=== PATIENT | male | born 1965 | race Caucasian/White ===

== ENCOUNTER 2019-01-14 10:50 | Emergency (ER) | payer BC ==
--- NOTE | 2019-01-14 13:08 | ER ---
Nurse's Notes [facility] Name: Antoine Figueroa Age: 54 yrs Sex: Male : 1965 Arrival Date: 01/14/2019 Time: 10:51 Bed 27 Private MD: King Gonzalez T Diagnosis: Acute pharyngitis;Essential (primary) hypertension Presentation: 01/14 11:17 Presenting complaint: Patient states: sore throat, chills, body aches that began today. ss Transition of care: patient was not received from another setting of care. Onset of symptoms was January 14, 2019. Risk Assessment: Do you want to hurt yourself or someone else? Patient reports no desire to harm self or others. Initial Sepsis Screen: Does the patient meet any 2 criteria? No. Patient's initial sepsis screen is negative. Does the patient have a suspected source of infection? No. Patient's initial sepsis screen is negative. Care prior to arrival: None. 11:17 Method Of Arrival: Ambulatory ss 11:17 Acuity: WILMER 2 ss Historical: - Allergies: 11:18 No Known Allergies; ss - Home Meds: 11:18 None [Active]; ss - PMHx: 11:19 Hypertension; ss - Immunization history:: Adult Immunizations up to date. - Social history:: Smoking status: Patient uses tobacco products, smokes one pack cigarettes per day. - Ebola Screening: : Patient denies exposure to infectious person Patient denies travel to an Ebola-affected area in the 21 days before illness onset. Screenin:24 Abuse screen: Denies threats or abuse. Nutritional screening: No deficits noted. tr5 Tuberculosis screening: No symptoms or risk factors identified. Fall Risk None identified. Assessment: 12:24 General: Appears in no apparent distress. Behavior is calm, cooperative. Pain: tr5 Complains of pain in abdomen. Neuro: Level of Consciousness is awake, alert, obeys commands, Oriented to person, place, time, Bull Fiddle Player are equal bilaterally Moves all extremities. Gait is steady. Cardiovascular: Heart tones present Capillary refill < 3 seconds Pulses are all present. Edema is absent. Respiratory: Airway is patent Respiratory effort is even, unlabored, Respiratory pattern is regular, symmetrical, Breath sounds are clear bilaterally. GI: No signs and/or symptoms were reported involving the gastrointestinal system. : No signs and/or symptoms were reported regarding the genitourinary system. EENT: Throat is reddened Reports Sore throat. Derm: No signs and/or symptoms reported regarding the dermatologic system. Musculoskeletal: No signs and/or symptoms reported regarding the musculoskeletal system. Vital Signs: 11:18 BP 144 / 110; Pulse 80; Resp 16; Temp 97.9(O); Pulse Ox 97% on R/A; Weight 90.72 kg; ss Height 5 ft. 10 in. (177.80 cm); Pain 5/10; 13:15 BP 129 / 93; Pulse 72; Resp 16; Pulse Ox 99% on R/A; tr5 11:18 Body Mass Index 28.70 (90.72 kg, 177.80 cm) ED Course: 10:51 Patient arrived in ED. mr 10:52 King Gonzalez MD is Private Physician. mr 11:18 Triage completed. ss 11:18 Arm band placed on right wrist. ss 11:26 [facility] pm1 11:26 Eros Terry MD is Attending Physician. pm1 11:59 Flu and/or RSV swab sent to lab. Strep swab sent to lab. lt1 11:59 Strep Sent. lt1 11:59 Flu Sent. lt1 12:02 Ryan Kwon RN is Primary Nurse. tr5 12:24 Placed in gown. Bed in low position. Call light in reach. tr5 13:35 No provider procedures requiring assistance completed. Patient did not have IV access tr5 during this emergency room visit. Administered Medications: No medications were administered Outcome: 13:07 Discharge ordered by . pm1 13:15 Discharged to home ambulatory. tr5 13:15 Condition: stable 13:15 Discharge instructions given to patient, family, Instructed on discharge instructions, follow up and referral plans. medication usage, Demonstrated understanding of instructions, follow-up care, medications, Prescriptions given X 1. 13:36 Patient left the ED. tr5 Signatures: Adelaide Blanca MargieZohra forbes, ARLENE RN Ellis Miranda, SUSAN XRAY TECH pm1 Natalie De La Cruz lt1 Ryan Kwon RN RN tr5 Corrections: (The following items were deleted from the chart) 11:19 11:17 Acuity: WILMER 4 ss 11:19 11:18 PMHx: None; ss ss
--- NOTE | 2019-01-14 13:08 | EDPHYS ---
Physician Documentation [facility] Name: Antoine Figueroa Age: 54 yrs Sex: Male : 1965 Arrival Date: 01/14/2019 Time: 10:51 Bed 27 Private MD: King Gonzalez T ED Physician Eros Terry HPI: 01/14 11:42 This 54 yrs old Male presents to ER via Ambulatory with complaints of Sore pm1 Throat. 11:42 The patient presents with sore throat. Onset: The symptoms/episode began/occurred pm1 today. Severity of symptoms: in the emergency department the symptoms are unchanged. Modifying factors: The symptoms are alleviated by nothing, the symptoms are aggravated by nothing, Patient's oral intake status: good The patient has had contact with sick and grandson's are present in the ER with complaints of sore throat and cough. Associated signs and symptoms: Pertinent positives: chills, bodyaches, Pertinent negatives chest pain, cough, fever, headache, nausea, rhinorrhea, shortness of breath, vomiting. The patient has not recently seen a physician. Has a history of HTN that he has not addressed with a PCP. Was given a 2 week prescription for HTN medications at a ER but never followed up with a PCP. That was about 2 years ago. Historical: - Allergies: 11:18 No Known Allergies; ss - Home Meds: 11:18 None [Active]; ss - PMHx: 11:19 Hypertension; ss - Immunization history:: Adult Immunizations up to date. - Social history:: Smoking status: Patient uses tobacco products, smokes one pack cigarettes per day. - Ebola Screening: : Patient denies exposure to infectious person Patient denies travel to an Ebola-affected area in the 21 days before illness onset. ROS: 11:42 Constitutional: Negative for fever, chills, and weight loss, Eyes: Negative for injury, pm1 pain, redness, and discharge. 11:42 Neck: Negative for injury, pain, and swelling, Cardiovascular: Negative for chest pain, palpitations, and edema, Respiratory: Negative for shortness of breath, cough, wheezing, and pleuritic chest pain, Abdomen/GI: Negative for abdominal pain, nausea, vomiting, diarrhea, and constipation, Back: Negative for injury and pain, MS/Extremity: Negative for injury and deformity, Skin: Negative for injury, rash, and discoloration, Neuro: Negative for headache, weakness, numbness, tingling, and seizure. 11:42 ENT: Positive for sore throat, Negative for ear pain, rhinorrhea, sinus congestion, sinus pain, difficulty swallowing, difficulty handling secretions, hoarseness. Exam: 11:42 Constitutional: This is a well developed, well nourished patient who is awake, alert, pm1 and in no acute distress. Head/Face: Normocephalic, atraumatic. Eyes: Pupils equal round and reactive to light, extra-ocular motions intact. Lids and lashes normal. Conjunctiva and sclera are non-icteric and not injected. Cornea within normal limits. Periorbital areas with no swelling, redness, or edema. Neck: Trachea midline, no thyromegaly or masses palpated, and no cervical lymphadenopathy. Supple, full range of motion without nuchal rigidity, or vertebral point tenderness. No Meningismus. 11:42 Chest/axilla: Normal chest wall appearance and motion. Nontender with no deformity. No lesions are appreciated. Cardiovascular: Regular rate and rhythm with a normal S1 and S2. No gallops, murmurs, or rubs. Normal PMI, no JVD. No pulse deficits. Respiratory: Lungs have equal breath sounds bilaterally, clear to auscultation and percussion. No rales, rhonchi or wheezes noted. No increased work of breathing, no retractions or nasal flaring. Abdomen/GI: Soft, non-tender, with normal bowel sounds. No distension or tympany. No guarding or rebound. No evidence of tenderness throughout. Back: No spinal tenderness. No costovertebral tenderness. Full range of motion. Skin: Warm, dry with normal turgor. Normal color with no rashes, no lesions, and no evidence of cellulitis. MS/ Extremity: Pulses equal, no cyanosis. Neurovascular intact. Full, normal range of motion. 11:42 ENT: External ear(s): are unremarkable, Ear canal(s): are normal, TM's: are normal, Nose: is normal, Mouth: is normal, Posterior pharynx: Airway: normal, patent, Tonsils: bilaterally enlarged, with erythema, no exudate, no ulcerations, erythema, that is mild, exudate, is not appreciated, peritonsillar mass, is not appreciated, pooling of secretions, is not appreciated. 11:42 Neuro: Orientation: is normal, Motor: is normal, moves all fours. Vital Signs: 11:18 BP 144 / 110; Pulse 80; Resp 16; Temp 97.9(O); Pulse Ox 97% on R/A; Weight 90.72 kg; ss Height 5 ft. 10 in. (177.80 cm); Pain 5/10; 13:15 BP 129 / 93; Pulse 72; Resp 16; Pulse Ox 99% on R/A; tr5 11:18 Body Mass Index 28.70 (90.72 kg, 177.80 cm) ss MDM: 11:26 Patient medically screened. pm1 13:06 Data reviewed: vital signs. Data interpreted: Pulse oximetry: on room air is 97 %. pm1 Interpretation: normal. Counseling: I had a detailed discussion with the patient and/or guardian regarding: the historical points, exam findings, and any diagnostic results supporting the discharge/admit diagnosis, lab results, the need for outpatient follow up, to return to the emergency department if symptoms worsen or persist or if there are any questions or concerns that arise at home. 13:06 ED course: Presenting here with grandsons who tested positive for strep throat, will pm1 cover the patient also. 01/14 11:41 Order name: Flu; Complete Time: 13:01 pm1 01/14 11:41 Order name: Strep; Complete Time: 13:01 pm1 01/14 12:52 Order name: Throat Culture EDMS Administered Medications: No medications were administered Disposition: 16:50 Co-signature as Attending Physician, Eros Terry MD I agree with the assessment and eva plan of care. Disposition: 01/14/19 13:07 Discharged to Home. Impression: Acute pharyngitis, Essential (primary) hypertension. - Condition is Stable. - Discharge Instructions: Hypertension, Pharyngitis, How to Take Your Blood Pressure, [id number], DASH Eating Plan, Managing Your Hypertension. - Prescriptions for Zithromax Z- James 250 mg Oral Tablet - take 1 tablet by ORAL route as directed for 5 days Day 1 - take two (2) tablets one time. Day 2, 3, 4 , 5 take one (1) tablet once daily.; 6 tablet. - Medication Reconciliation Form, Thank You Letter, Antibiotic Education, Prescription Opioid Use form. - Follow up: Emergency Department; When: As needed; Reason: Worsening of condition. Follow up: Private Physician; When: 2 - 3 days; Reason: Recheck today's complaints, Continuance of care, Re-evaluation by your physician. - Problem is new. - Symptoms have improved. Signatures: Dispatcher [employer] EDMS Eros Terry, Zohra Franklin MD, cha RN RN ss Ellis Miranda, SHARE HOLDER SHARE HOLDER pm1 Ryan Kwon RN RN tr5 Corrections: (The following items were deleted from the chart) 11:19 11:18 PMHx: None; [facility] 13:36 13:07 01/14/2019 13:07 Discharged to Home. Impression: Acute pharyngitis; Essential tr5 (primary) hypertension. Condition is Stable. Forms are Medication Reconciliation Form, Thank You Letter, Antibiotic Education, Prescription Opioid Use. Follow up: Emergency Department; When: As needed; Reason: Worsening of condition. Follow up: Private Physician; When: 2 - 3 days; Reason: Recheck today's complaints, Continuance of care, Re-evaluation by your physician. Problem is new. Symptoms have improved. pm1
[2019-01-14 13:52] VITALS: TEMP 97.9
[2019-01-14 13:53] VITALS: BP 129/93; O2SAT 99
== END 2019-01-14 13:36 | disposition home or self-care (01) ==
LOC: ER 10:50
DX: J02.9 Acute pharyngitis, unspecified (principal); I10 Essential (primary) hypertension; F17.210 Nicotine dependence, cigarettes, uncomplicated
CPT/HCPCS: 87070; 87081; 87804; 99283

== ENCOUNTER 2019-03-02 18:07 | Emergency (ER) | payer BC ==
[2019-03-02] MEDS ORDERED: NITROGLYCERIN 0.4 MG/TAB SL ONE (19:19)
[2019-03-02 19:24] LABS: Absolute Lymphocytes (CBC) 2.6 K/uL (0.7-4.9); Basophils % 0.8 % (0-1.3); Hematocrit 45.1 % (39.6-49.0); Lymphocytes % 29.3 % (15.3-44.8); MPV 7.4 fL (7.6-11.3); RBC Red Blood Cell Count 4.79 M/uL (4.33-5.43)
[2019-03-02 19:28] LABS: Protime INR 0.97
[2019-03-02 19:42] LABS: ALT/SGPT 33 U/L (12-78); AST/SGOT 18 U/L (15-37); Albumin 3.7 g/dL (3.4-5.0); Alkaline Phosphatase 34 U/L (45-117); BUN Blood Urea Nitrogen 14 mg/dL (7-18); Bicarbonate 28 mmol/L (21-32); Bilirubin Direct < 0.1 mg/dL (0-0.2); Bilirubin Total 0.3 mg/dL (0.2-1.0); Glucose Level 100 mg/dL (74-106); Magnesium 2.2 mg/dL (1.8-2.4); NT PRO-BNP 21 pg/mL (<125); Potassium 3.9 mmol/L (3.5-5.1); Protein, Total 6.9 g/dL (6.4-8.2); Sodium Level 140 mmol/L (136-145); Troponin (Emerg Dept Use Only) < 0.02 ng/mL (0.0-0.045)
--- NOTE | 2019-03-02 20:11 | RAD REPORT ---
EXAM DESCRIPTION: Flores Single View03/02/2019 7:29 pm CLINICAL HISTORY: sob COMPARISON: none FINDINGS: The lungs appear clear of acute infiltrate. The heart is normal size IMPRESSION: No acute abnormalities displayed
--- NOTE | 2019-03-02 21:46 | ER ---
Nurse's Notes [facility] Name: Antoine Figueroa Age: 54 yrs Sex: Male : 1965 Arrival Date: 03/02/2019 Time: 18:10 Bed 24 Private MD: Diagnosis: Essential (primary) hypertension;Chest pain, unspecified Presentation: 03/02 18:17 Presenting complaint: Patient states: "I've been feeling discomfort in the chest, aj1 headache, face is flushed. My said its high blood pressure, but its been like this all day long." Denies palpitations, shortness of breath. Transition of care: patient was not received from another setting of care. Onset of symptoms was March 02, 2019. Risk Assessment: Do you want to hurt yourself or someone else? Patient reports no desire to harm self or others. Initial Sepsis Screen: Does the patient meet any 2 criteria? No. Patient's initial sepsis screen is negative. Does the patient have a suspected source of infection? No. Patient's initial sepsis screen is negative. Care prior to arrival: None. 18:17 Method Of Arrival: Ambulatory aj 18:17 Acuity: WILMER 3 aj1 Triage Assessment: 18:19 General: Appears in no apparent distress. comfortable, Behavior is calm, cooperative, aj1 appropriate for age. Pain: Complains of pain in chest Pain does not radiate. Pain currently is 3 out of 10 on a pain scale. Quality of pain is described as tightness. Neuro: Level of Consciousness is awake, alert, obeys commands, Oriented to person, place, time, situation. Cardiovascular: Reports chest pain, Denies palpitations, shortness of breath, Patient's skin is warm and dry. Respiratory: Airway is patent Respiratory effort is even, unlabored, Respiratory pattern is regular, symmetrical. Historical: - Allergies: 18:19 No Known Allergies; aj1 - Home Meds: 18:19 None [Active]; aj1 - PMHx: 18:19 Hypertension; aj1 - PSHx: 18:19 None; aj1 - Immunization history:: Flu vaccine is not up to date. - Social history:: Smoking status: Patient uses tobacco products, smokes one pack cigarettes per day. - Ebola Screening: : Patient denies travel to an Ebola-affected area in the 21 days before illness onset. Screenin:17 Abuse screen: Denies threats or abuse. Denies injuries from another. Nutritional rr5 screening: No deficits noted. Tuberculosis screening: No symptoms or risk factors identified. Fall Risk IV access (20 points). Total Ferguson Fall Scale indicates No Risk (0-24 pts). Assessment: 19:10 General: Appears in no apparent distress. uncomfortable, Behavior is calm, cooperative, rr5 appropriate for age. 19:10 Pain: Complains of pain in anterior aspect of left upper chest Pain does not radiate. rr5 Pain currently is 2 out of 10 on a pain scale. Quality of pain is described as discomfort Pain began 1 day ago. Is intermittent. Neuro: Level of Consciousness is awake, alert, obeys commands, Oriented to person, place, time, situation, Appropriate for age. Cardiovascular: Reports chest pain, i feel like my blood pressure is high Capillary refill < 3 seconds Patient's skin is warm and dry. Respiratory: Reports cough that is dry, Airway is patent Respiratory effort is even, unlabored, Respiratory pattern is regular, symmetrical. GI: No signs and/or symptoms were reported involving the gastrointestinal system. : No signs and/or symptoms were reported regarding the genitourinary system. EENT: No signs and/or symptoms were reported regarding the EENT system. Derm: Skin is intact, is healthy with good turgor, Skin temperature is warm. Musculoskeletal: Circulation, motion, and sensation intact. Capillary refill < 3 seconds. 20:20 Reassessment: Patient appears in no apparent distress at this time. Patient is alert, rr5 oriented x 3, equal unlabored respirations, skin warm/dry/pink. awaiting for review. Patient states feeling better. Patient states symptoms have improved. 21:25 Reassessment: Patient appears in no apparent distress at this time. No changes from rr5 previously documented assessment. awaiting for result. 21:55 Reassessment: Patient appears in no apparent distress at this time. Patient is alert, rr5 oriented x 3, equal unlabored respirations, skin warm/dry/pink. discharge instruction given and explained without complaints made. Patient denies pain at this time. Patient states feeling better. Patient states symptoms have improved. Vital Signs: 18:19 BP 139 / 100; Pulse 81; Resp 18; Temp 98.6; Pulse Ox 100% on R/A; Weight 86.18 kg (R); aj1 Height 5 ft. 10 in. (177.80 cm) (R); Pain 3/10; 19:15 BP 151 / 101; Pulse 77; Resp 19; Temp 98.5; Pulse Ox 97% ; Pain 2/10; rr5 20:18 BP 129 / 90; Pulse 70; Resp 18; Pulse Ox 97% ; Pain 0/10; rr5 21:40 BP 131 / 85; Pulse 79; Resp 17; Temp 98.4; Pulse Ox 99% ; Pain 0/10; rr5 18:19 Body Mass Index 27.26 (86.18 kg, 177.80 cm) aj1 ED Course: 18:10 Patient arrived in ED. mr 18:19 Triage completed. aj1 18:19 Arm band placed on Patient placed in waiting room, Patient notified of wait time. EKG aj1 completed in triage. Results shown to MD. 19:07 Charan Carrillo PA is PHCP. jr8 19:07 Eros Terry MD is Attending Physician. jr8 19:07 Luis Jaramillo, RN is Primary Nurse. rr5 19:10 EKG done, by ED staff, reviewed by Charan ALEJANDRE. rr5 19:15 No provider procedures requiring assistance completed. Inserted saline lock: 20 gauge rr5 in right wrist, using aseptic technique. Blood collected. 19:15 Patient maintains SpO2 saturation greater than 95% on room air. rr5 19:30 XRAY Chest (1 view) In Process Unspecified. EDMS 21:10 Repeat lab(s) drawn. by az, sent to lab. rr5 21:45 Jv Ocampo MD is Referral Physician. jr8 Administered Medications: 19:20 Drug: Nitroglycerin 0.4 mg Route: Sublingual; rr5 20:20 Follow up: Response: No adverse reaction; Marked relief of symptoms rr5 Outcome: 21:46 Discharge ordered by . jr8 21:58 Patient left the ED. rr5 Signatures: Dispatcher [employer] EDMS Nicki Crain RN RN aj1 Adelaide Blanca mr Charan Carrillo PA PA jr8 Luis Jaramillo, RN RN rr5
--- NOTE | 2019-03-02 21:47 | EDPHYS ---
Physician Documentation [facility] Name: Antoine Figueroa Age: 54 yrs Sex: Male : 1965 Arrival Date: 03/02/2019 Time: 18:10 Bed 24 Private MD: ED Physician Eros Terry HPI: 03/02 21:09 This 54 yrs old Male presents to ER via Ambulatory with complaints of Chest jr8 Tightness, High Blood Pressure. 21:09 The patient or guardian reports chest pain that is located primarily in the anterior jr8 chest wall, left. Onset: acutely, today. The pain does not radiate. Associated signs and symptoms: The patient has no apparent associated signs or symptoms. The chest pain is described as a pressure. Duration: The patient or guardian reports a single episode, that is still ongoing. Modifying factors: The symptoms are alleviated by nothing. the symptoms are aggravated by nothing. Severity of pain: At its worst the pain was mild in the emergency department the pain is unchanged. The patient has not experienced similar symptoms in the past. The patient has not recently seen a physician. Started around 12 pm today. [place] his blood pressure was elevated. Started to have chest tightness. Currently not on any medications for BP . Historical: - Allergies: 18:19 No Known Allergies; aj1 - Home Meds: 18:19 None [Active]; aj1 - PMHx: 18:19 Hypertension; aj1 - PSHx: 18:19 None; aj1 - Immunization history:: Flu vaccine is not up to date. - Social history:: Smoking status: Patient uses tobacco products, smokes one pack cigarettes per day. - Ebola Screening: : Patient denies travel to an Ebola-affected area in the 21 days before illness onset. ROS: 21:10 Eyes: Negative for injury, pain, redness, and discharge, ENT: Negative for injury, jr8 pain, and discharge, Neck: Negative for injury, pain, and swelling, Respiratory: Negative for shortness of breath, cough, wheezing, and pleuritic chest pain, Abdomen/GI: Negative for abdominal pain, nausea, vomiting, diarrhea, and constipation, Back: Negative for injury and pain, MS/Extremity: Negative for injury and deformity, Skin: Negative for injury, rash, and discoloration, Neuro: Negative for headache, weakness, numbness, tingling, and seizure. 21:10 Cardiovascular: Positive for chest pain, Negative for edema, orthopnea, palpitations, paroxysmal nocturnal dyspnea. Exam: 21:10 Eyes: Pupils equal round and reactive to light, extra-ocular motions intact. Lids and jr8 lashes normal. Conjunctiva and sclera are non-icteric and not injected. Cornea within normal limits. Periorbital areas with no swelling, redness, or edema. ENT: Nares patent. No nasal discharge, no septal abnormalities noted. Tympanic membranes are normal and external auditory canals are clear. Oropharynx with no redness, swelling, or masses, exudates, or evidence of obstruction, uvula midline. Mucous membranes moist. Neck: Trachea midline, no thyromegaly or masses palpated, and no cervical lymphadenopathy. Supple, full range of motion without nuchal rigidity, or vertebral point tenderness. No Meningismus. Chest/axilla: Normal chest wall appearance and motion. Nontender with no deformity. No lesions are appreciated. Cardiovascular: Regular rate and rhythm with a normal S1 and S2. No gallops, murmurs, or rubs. Normal PMI, no JVD. No pulse deficits. Respiratory: Lungs have equal breath sounds bilaterally, clear to auscultation and percussion. No rales, rhonchi or wheezes noted. No increased work of breathing, no retractions or nasal flaring. Abdomen/GI: Soft, non-tender, with normal bowel sounds. No distension or tympany. No guarding or rebound. No evidence of tenderness throughout. Back: No spinal tenderness. No costovertebral tenderness. Full range of motion. Skin: Warm, dry with normal turgor. Normal color with no rashes, no lesions, and no evidence of cellulitis. MS/ Extremity: Pulses equal, no cyanosis. Neurovascular intact. Full, normal range of motion. Neuro: Awake and alert, GCS 15, oriented to person, place, time, and situation. Cranial nerves II-XII grossly intact. Motor strength 5/5 in all extremities. Sensory grossly intact. Cerebellar exam normal. Normal gait. Vital Signs: 18:19 BP 139 / 100; Pulse 81; Resp 18; Temp 98.6; Pulse Ox 100% on R/A; Weight 86.18 kg (R); aj1 Height 5 ft. 10 in. (177.80 cm) (R); Pain 3/10; 19:15 BP 151 / 101; Pulse 77; Resp 19; Temp 98.5; Pulse Ox 97% ; Pain 2/10; rr5 20:18 BP 129 / 90; Pulse 70; Resp 18; Pulse Ox 97% ; Pain 0/10; rr5 21:40 BP 131 / 85; Pulse 79; Resp 17; Temp 98.4; Pulse Ox 99% ; Pain 0/10; rr5 18:19 Body Mass Index 27.26 (86.18 kg, 177.80 cm) aj1 MDM: 19:08 Patient medically screened. jr8 21:10 The patient was not given aspirin in the Emergency Department. Patient reports taking jr8 aspirin within the past 24 hours. Data reviewed: vital signs, nurses notes, lab test result(s), EKG, radiologic studies, plain films. Data interpreted: Pulse oximetry: on room air is 97 %. Interpretation: normal. Counseling: I had a detailed discussion with the patient and/or guardian regarding: the historical points, exam findings, and any diagnostic results supporting the discharge/admit diagnosis, lab results, radiology results, the need for outpatient follow up, a storage battery inspector and tester, a family practitioner, to return to the emergency department if symptoms worsen or persist or if there are any questions or concerns that arise at home. ED course: Patient currently free of all symptoms. BP well controlled at this point. If second troponin is negative and patient still doing well, will send home to f/u with FM and Cardiology. Will start patient on BP medications. Patient good with this plan . 03/02 19: Order name: Basic Metabolic Panel; Complete Time: 20:03/02 19: Order name: CBC with Diff; Complete Time: 20:03/02 19:07 Order name: LFT's; Complete Time: 20:02 03/02 19:07 Order name: Magnesium; Complete Time: 20:02 03/02 19:07 Order name: NT PRO-BNP; Complete Time: 20:02 03/02 19:07 Order name: PT-INR; Complete Time: 20:02 03/02 19:07 Order name: Troponin (emerg Dept Use Only); Complete Time: 20:03/02 19:07 Order name: XRAY Chest (1 view); Complete Time: 20:56 [facility] 03/02 19:07 Order name: Cardiac monitoring; Complete Time: 19:56 [facility] 03/02 19:07 Order name: EKG - Nurse/Tech; Complete Time: 20:16 8 03/02 19:07 Order name: IV Saline Lock; Complete Time: 20:16 8 03/02 21:08 Order name: Troponin (emerg Dept Use Only); Complete Time: 21:45 [facility] 03/02 19:07 Order name: Labs collected and sent; Complete Time: 20:16 8 03/02 19:07 Order name: O2 Per Protocol; Complete Time: 20:16 8 03/02 19:07 Order name: O2 Sat Monitoring; Complete Time: 20:16 Administered Medications: 19:20 Drug: Nitroglycerin 0.4 mg Route: Sublingual; rr5 20:20 Follow up: Response: No adverse reaction; Marked relief of symptoms rr5 Disposition: 03/03 07:54 Co-signature as Attending Physician, Eros Terry MD I agree with the assessment and eva plan of care. Disposition: 03/02/19 21:46 Discharged to Home. Impression: Essential (primary) hypertension, Chest pain, unspecified. - Condition is Stable. - Discharge Instructions: Nonspecific Chest Pain, Hypertension. - Prescriptions for Lisinopril 20 mg Oral Tablet - take 1 tablet by ORAL route once daily; 20 tablet. - Medication Reconciliation Form, Thank You Letter, Antibiotic Education, Prescription Opioid Use form. - Follow up: Jv Ocampo MD; When: 2 - 3 days; Reason: Recheck today's complaints, Continuance of care, Re-evaluation by your physician. - Problem is new. - Symptoms have improved. Signatures: Dispatcher [employer] EDMS Nicki Crain RN RN aj1 Eros Terry MD MD cha Roszak, Josh, PA PA jr8 Luis Jaramillo RN RN rr5 Corrections: (The following items were deleted from the chart) 03/02 21:58 21:46 03/02/2019 21:46 Discharged to Home. Impression: Essential (primary) rr5 hypertension; Chest pain, unspecified. Condition is Stable. Forms are Medication Reconciliation Form, Thank You Letter, Antibiotic Education, Prescription Opioid Use. Follow up: Jv Ocampo; When: 2 - 3 days; Reason: Recheck today's complaints, Continuance of care, Re-evaluation by your physician. Problem is new. Symptoms have improved. jr8
[2019-03-02 22:17] VITALS: BP 131/85; TEMP 98.4; O2SAT 99
--- NOTE | 2019-03-04 20:51 | EKG ---
Test Date: 2019-03-02 Test Time: 18:15:50 Psychology Physician: ASAD MEASUREMENT RESULTS: Intervals: Rate: 80 MO: 134 QRSD: 94 QT: 352 QTc: 405 [place]: P: 64 MO: 134 QRS: 74 T: 59 INTERPRETIVE STATEMENTS: Normal sinus rhythm Normal ECG No previous ECG available for comparison Electronically Signed On 03-04-19 20:47:05 [employer] by Jv Ocampo
== END 2019-03-02 21:58 | disposition home or self-care (01) ==
LOC: ER 18:07
DX: R07.9 Chest pain, unspecified (principal); I10 Essential (primary) hypertension; F17.210 Nicotine dependence, cigarettes, uncomplicated
CPT/HCPCS: 36415; 71045; 80048; 80076; 83735; 83880; 84484; 85025; 85610; 93005; 99284

== ENCOUNTER 2019-09-07 15:30 | Emergency (ER) | payer BC ==
[2019-09-07] MEDS ORDERED: cloNIDine HCL 0.1 MG TAB ONE (17:51)
--- NOTE | 2019-09-07 17:56 | RAD REPORT ---
EXAM DESCRIPTION: CT - Head Brain Wo Cont - 09/07/2019 5:49 pm CLINICAL HISTORY: hypertension;Headache Headache, hypertension, drowsiness COMPARISON: No comparisons TECHNIQUE: All CT scans are performed using dose optimization technique as appropriate and may inclu de automated exposure control or mA/KV adjustment according to patient size. FINDINGS: No intracranial hemorrhage, hydrocephalus or extra-axial fluid collection.No areas of brai n edema or evidence of midline shift. The paranasal sinuses and mastoids are essentially clear. The calvarium is intact. IMPRESSION: No acute intracranial abnormality.
--- NOTE | 2019-09-07 18:18 | EDPHYS ---
Physician Documentation [facility] Name: Antoine Figueroa Age: 54 yrs Sex: Male : 1965 Arrival Date: 09/07/2019 Time: 15:32 Bed 17 Private MD: King Gonzalez T ED Physician Alex Villarreal HPI: 09/06 17:43 This 54 yrs old Male presents to ER via Ambulatory with complaints of High rn Blood Pressure, Headache. 17:43 The patient has elevated blood pressure and discovered this at home. Onset: The rn symptoms/episode began/occurred at an unknown time. Modifying factors:. Severity of symptoms: At its worst the blood pressure was moderate, in the emergency department the blood pressure is unchanged. The patient has experienced similar episodes in the past. Reports has been on BP meds before, never followed up and actually stopped taking his meds, was on lisinopril, now returns for 3-4 days of posterior headache, and high blood pressure readings at home. No focal neurological complaints, no head trauma, no vomiting. No chest pain/sob. . Historical: - Allergies: 15:53 No Known Allergies; ca1 - Home Meds: 15:53 Lisinopril Oral [Active]; ca1 - PMHx: 15:53 Hypertension; ca1 - PSHx: 15:53 None; ca1 - Immunization history:: Adult Immunizations not up to date. - Social history:: Smoking status: Patient reports the use of cigarette tobacco products, smokes two packs cigarettes per day. - Family history:: not pertinent. - Hospitalizations: : No recent hospitalization is reported. ROS: 17:43 Constitutional: Negative for fever, chills, and weight loss, Eyes: Negative for injury, rn pain, redness, and discharge, Neck: Negative for injury, pain, and swelling, Cardiovascular: Negative for chest pain, palpitations, and edema, Respiratory: Negative for shortness of breath, cough, wheezing, and pleuritic chest pain, Abdomen/GI: Negative for abdominal pain, nausea, vomiting, diarrhea, and constipation, MS/Extremity: Negative for injury and deformity, Skin: Negative for injury, rash, and discoloration, Neuro: Negative for weakness, numbness, tingling, and seizure. Exam: 17:43 Constitutional: This is a well developed, well nourished patient who is awake, alert, rn and in no acute distress. Head/Face: Normocephalic, atraumatic. Eyes: Pupils equal round and reactive to light, extra-ocular motions intact. Lids and lashes normal. Conjunctiva and sclera are non-icteric and not injected. Cornea within normal limits. Periorbital areas with no swelling, redness, or edema. Neck: Trachea midline, no thyromegaly or masses palpated, and no cervical lymphadenopathy. Supple, full range of motion without nuchal rigidity, or vertebral point tenderness. No Meningismus. Cardiovascular: Regular rate and rhythm. No pulse deficits. Respiratory: No increased work of breathing, no retractions or nasal flaring. Abdomen/GI: Soft, non-tender MS/ Extremity: Pulses equal, no cyanosis. Neurovascular intact. Full, normal range of motion. Equal circumference. Neuro: Awake and alert, GCS 15, oriented to person, place, time, and situation. Cranial nerves II-XII grossly intact. Motor strength 5/5 in all extremities. Sensory grossly intact. Cerebellar exam normal. 18:15 ECG was reviewed by the Attending Physician. rn Vital Signs: 15:46 BP 151 / 104; Pulse 95; Resp 18 S; Temp 97.8(TE); Pulse Ox 96% on R/A; Weight 86.18 kg ca1 (R); Height 5 ft. 10 in. (177.80 cm) (R); 18:15 BP 144 / 94; rn 18:16 BP 144 / 94; Pulse 75; Resp 20; Pulse Ox 98% ; bp 15:46 Body Mass Index 27.26 (86.18 kg, 177.80 cm) ca1 MDM: 17:19 Patient medically screened. rn 18:15 Differential diagnosis: hypertensive crisis, Malignant HTN. Data reviewed: vital signs, rn nurses notes, EKG, radiologic studies, CT scan, and as a result, I will discharge patient. Counseling: I had a detailed discussion with the patient and/or guardian regarding: the historical points, exam findings, and any diagnostic results supporting the discharge/admit diagnosis, radiology results, the need for outpatient follow up, to return to the emergency department if symptoms worsen or persist or if there are any questions or concerns that arise at home. Counseling: I had a detailed discussion with the patient and/or guardian regarding: the presence of at least one elevated blood pressure reading (>120/80) during this emergency department visit. Response to treatment: the patient's symptoms have markedly improved after treatment, and as a result, I will discharge patient. Special discussion: I have referred the patient to see his PCP for further evaluation of high blood pressure. I discussed with the patient/guardian in detail that at this point there is no indication for admission to the hospital. It is understood, however, that if the symptoms persist or worsen the patient needs to return immediately for re-evaluation. Based on the history and exam findings, there is no indication for further emergent testing or inpatient evaluation. I discussed with the patient/guardian the need to see the primary care provider for further evaluation of the symptoms. ED course: Pt improved symptoms with lowering of BP, now 144/94, neg ct head and normal ecg, will dc home with script for lisinopril, had long discussion regarding BP management, recording, and importance of PCP f/u.. 09/06 17:26 Order name: CT Head Brain wo Cont; Complete Time: 18:04 rn 09/06 17:26 Order name: EKG; Complete Time: 17: rn 09/06 17:26 Order name: EKG - Nurse/Tech; Complete Time: 18:16 rn EC:15 Rate is 75 beats/min. Rhythm is regular. QRS [place] is Normal. [place] interval is normal. QRS rn interval is normal. QT interval is normal. No Q waves. T waves are Normal. No ST changes noted. Clinical impression: Normal ECG. Interpreted by me. Reviewed by me. Administered Medications: 17:40 Drug: cloNIDine 0.1 mg Route: PO; bp 18:16 Follow up: Response: No adverse reaction bp Disposition: 09/07/19 18:17 Discharged to Home. Impression: Hypertension, unspecified. - Condition is Stable. - Discharge Instructions: Hypertension. - Prescriptions for Lisinopril 20 mg Oral Tablet - take 1 tablet by ORAL route once daily; 60 tablet. - Medication Reconciliation Form, Thank You Letter, Antibiotic Education, Prescription Opioid Use form. - Follow up: Private Physician; When: As needed; Reason: Recheck today's complaints, Re-evaluation by your physician. - Problem is an ongoing problem. - Symptoms have improved. Signatures: Dispatcher [employer] EDMS Alex Villarreal MD MD rn Peltier, Brian, RN RN bp Acob, Asia RN RN ca1 Corrections: (The following items were deleted from the chart) 18:30 18:17 09/07/2019 18:17 Discharged to Home. Impression: Hypertension, unspecified. bp Condition is Stable. Forms are Medication Reconciliation Form, Thank You Letter, Antibiotic Education, Prescription Opioid Use. Follow up: Private Physician; When: As needed; Reason: Recheck today's complaints, Re-evaluation by your physician. Problem is an ongoing problem. Symptoms have improved. rn
--- NOTE | 2019-09-07 18:18 | ER ---
Nurse's Notes [facility] Name: Antoine Figueroa Age: 54 yrs Sex: Male : 1965 Arrival Date: 09/07/2019 Time: 15:32 Bed 17 Private MD: King Gonzalez T Diagnosis: Hypertension, unspecified Presentation: 09/06 15:46 Chief complaint: Patient states: I checked my BP at home and it was 174/103. I was ca1 feeling flushed and some headaches that is why I checked. Headaches x 3-4 days. Denies dizziness, N/V. I have BP medications, but I never take them, but I went ahead and took one today. I think it is Lisinopril. Coronavirus screen: Proceed with normal triage. Patient denies a cough. Patient denies shortness of breath or difficulty breathing. Patient denies measured and/or subjective temperature greater than 100.4F prior to today's visit. Patient denies travel on a cruise ship or to a country the [facility] currently lists as an affected area. Patient denies contact with known and/or suspected case of COVID-19. Ebola Screen: Patient negative for fever greater than or equal to 101.5 degrees Fahrenheit, and additional compatible Ebola Virus Disease symptoms Patient denies exposure to infectious person. Patient denies travel to an Ebola-affected area in the 21 days before illness onset. No symptoms or risks identified at this time. Initial Sepsis Screen: Does the patient meet any 2 criteria? No. Patient's initial sepsis screen is negative. Does the patient have a suspected source of infection? No. Patient's initial sepsis screen is negative. Risk Assessment: Do you want to hurt yourself or someone else? Patient reports no desire to harm self or others. Onset of symptoms was September 07, 2019. 15:46 Method Of Arrival: Ambulatory ca1 15:46 Acuity: WILMER 3 ca1 Triage Assessment: 17:16 Headache History: The patient has had previous headaches and this one is similar to bp previous episodes. General: Appears in no apparent distress. uncomfortable, Behavior is calm, cooperative, appropriate for age. Pain: Complains of pain in head. Pain: Pain currently is 5 out of 10 on a pain scale. Pain began 2-3 days ago. Also complains of no other associated symptoms. EENT: No deficits noted. Neuro: Reports headache. Cardiovascular: Rhythm is sinus rhythm. Respiratory: No deficits noted. GI: No signs and/or symptoms were reported involving the gastrointestinal system. : No signs and/or symptoms were reported regarding the genitourinary system. Derm: No deficits noted. Musculoskeletal: No deficits noted. Historical: - Allergies: 15:53 No Known Allergies; ca1 - Home Meds: 15:53 Lisinopril Oral [Active]; ca1 - PMHx: 15:53 Hypertension; ca1 - PSHx: 15:53 None; ca1 - Immunization history:: Adult Immunizations not up to date. - Social history:: Smoking status: Patient reports the use of cigarette tobacco products, smokes two packs cigarettes per day. - Family history:: not pertinent. - Hospitalizations: : No recent hospitalization is reported. Screenin:17 Abuse screen: Denies threats or abuse. Denies injuries from another. Nutritional bp screening: No deficits noted. Tuberculosis screening: No symptoms or risk factors identified. Fall Risk None identified. Assessment: 17:17 General: SEE TRIAGE NOTE. Pain: Complains of pain in head. bp 18:16 Reassessment: S/S RESOLVED. MD AT B/S FOR RE-EVAL. bp 18:29 Reassessment: PT D/C HOME AMBULATORY WITH FAMILY, DX WITH ESSENTIAL HTN. bp Vital Signs: 15:46 BP 151 / 104; Pulse 95; Resp 18 S; Temp 97.8(TE); Pulse Ox 96% on R/A; Weight 86.18 kg ca1 (R); Height 5 ft. 10 in. (177.80 cm) (R); 18:15 BP 144 / 94; rn 18:16 BP 144 / 94; Pulse 75; Resp 20; Pulse Ox 98% ; bp 15:46 Body Mass Index 27.26 (86.18 kg, 177.80 cm) ca1 ED Course: 15:32 Patient arrived in ED. ag5 15:32 King Gonzalez MD is Private Physician. ag5 15:50 Triage completed. ca1 15:53 Arm band placed on right wrist. ca1 17:12 Santiago Barbour, ARLENE is Primary Nurse. bp 17:17 Patient has correct armband on for positive identification. Bed in low position. Call bp light in reach. Side rails up X2. 17:19 Alex Villarreal MD is Attending Physician. rn 17:44 CT Head Brain wo Cont Sent. bp 17:49 CT Head Brain wo Cont In Process Unspecified. EDMS 18:29 No provider procedures requiring assistance completed. Patient did not have IV access bp during this emergency room visit. Administered Medications: 17:40 Drug: cloNIDine 0.1 mg Route: PO; bp 18:16 Follow up: Response: No adverse reaction bp Outcome: 18:17 Discharge ordered by MD. rn 18:29 Discharged to home ambulatory, with family. bp 18:29 Condition: stable 18:29 Discharge instructions given to patient, Instructed on discharge instructions, follow up and referral plans. medication usage, Demonstrated understanding of instructions, follow-up care, medications, Prescriptions given X 1. 18:30 Patient left the ED. bp Signatures: Dispatcher [employer] EDMS Alex Villarreal MD MD rn Peltier, Brian, RN RN Asia Mora RN RN [facility] Sam, [facility]
[2019-09-07 18:35] VITALS: TEMP 97.8
[2019-09-07 18:36] VITALS: BP 144/94
[2019-09-07 18:41] VITALS: O2SAT 98
--- NOTE | 2019-09-08 10:19 | EKG ---
Test Date: 2019-09-07 Test Time: 18:04:53 Inventory Taker: CHRISS MEASUREMENT RESULTS: Intervals: Rate: 75 ND: 134 QRSD: 90 QT: 364 QTc: 406 [place]: P: 45 ND: 134 QRS: 53 T: 34 INTERPRETIVE STATEMENTS: Normal sinus rhythm Normal ECG Compared to ECG 03/02/2019 18:15:50 No significant changes Electronically Signed On 09-08-19 10:17:51 CDT by Jv Ocampo
== END 2019-09-07 18:30 | disposition home or self-care (01) ==
LOC: ER 15:30
DX: I10 Essential (primary) hypertension (principal); F17.210 Nicotine dependence, cigarettes, uncomplicated
CPT/HCPCS: 70450; 93005; 99284

== ENCOUNTER 2022-03-20 11:04 | Emergency (ER) | payer BC ==
--- NOTE | 2022-03-20 11:27 | ER ---
Nurse's Notes [facility] Name: Antoine Figueroa Age: 57 yrs Sex: Male : 1965 Arrival Date: 03/20/2022 Time: 11:05 Bed IW2 Private MD: Diagnosis: Fungal infection of feet, bilateral Presentation: 03/20 11:13 Chief complaint: Painful burning rash on bottom of both feet x 2 weeks. Coronavirus hb screen: At this time, the client does not indicate any symptoms associated with coronavirus-19. Ebola Screen: No symptoms or risks identified at this time. Risk Assessment: Do you want to hurt yourself or someone else? Patient reports no desire to harm self or others. Onset of symptoms was February 2023. 11:13 Method Of Arrival: Ambulatory hb 11:13 Acuity: WILMER 4 hb Historical: - Allergies: 11:14 No Known Allergies; hb - PMHx: 11:14 Hypertension; hb - Family history:: not pertinent. - Hospitalizations: : No recent hospitalization is reported. Vital Signs: 11:13 BP 162 / 105; Pulse 107; Resp 16; Temp 97.4; Pulse Ox 100% on R/A; Weight 95.25 kg; hb Height 5 ft. 10 in. (177.80 cm); Pain 10/10; 11:13 Body Mass Index 30.13 (95.25 kg, 177.80 cm) hb ED Course: 11:05 Patient arrived in ED. as 11:09 Alex Villarreal MD is Attending Physician. rn 11:14 Triage completed. hb 11:14 Arm band placed on. hb Administered Medications: No medications were administered Outcome: 11:27 Discharge ordered by . rn 11:31 Patient left the ED. hb Signatures: Martha Mcelroy Roman, MD MD rn Baxter, Heather, RN RN hb
--- NOTE | 2022-03-20 11:28 | EDPHYS ---
Physician Documentation [facility] Name: Antoine Figueroa Age: 57 yrs Sex: Male : 1965 Arrival Date: 03/20/2022 Time: 11:05 Bed IW2 Private MD: ED Physician Alex Villarreal HPI: 03/20 11:24 This 57 yrs old Male presents to ER via Ambulatory with complaints of Foot Problem. rn 11:24 The patient presents with pain, a rash. The complaints affect the left foot, right rn foot. Onset: The symptoms/episode began/occurred 2 week(s) ago. Modifying factors: The symptoms are alleviated by nothing, the symptoms are aggravated by soaking feet, wearing boots. Associated signs and symptoms: Pertinent negatives: fever, swelling, warmth. Severity of symptoms: At their worst the symptoms were moderate, in the emergency department the symptoms are unchanged. The patient has experienced similar episodes in the past. The patient has not recently seen a physician. Historical: - Allergies: 11:14 No Known Allergies; hb - PMHx: 11:14 Hypertension; hb - Family history:: not pertinent. - Hospitalizations: : No recent hospitalization is reported. ROS: 11:24 Constitutional: Negative for fever, chills, and weight loss, MS/Extremity: Negative for rn injury and deformity, Skin: + dry cracked feet, no redness or swelling Exam: 11:24 Constitutional: This is a well developed, well nourished patient who is awake, alert, rn and in no acute distress. Skin: + dry cracked feet with crusting, no exudate, no fluctuance, no streaking Vital Signs: 11:13 BP 162 / 105; Pulse 107; Resp 16; Temp 97.4; Pulse Ox 100% on R/A; Weight 95.25 kg; hb Height 5 ft. 10 in. (177.80 cm); Pain 10/10; 11:13 Body Mass Index 30.13 (95.25 kg, 177.80 cm) hb MDM: 11:09 Patient medically screened. rn 11:24 Differential diagnosis: cellulitis, fungal infection, athletes foot. Data reviewed: rn vital signs, nurses notes, and as a result, I will discharge patient. Counseling: I had a detailed discussion with the patient and/or guardian regarding: the historical points, exam findings, and any diagnostic results supporting the discharge/admit diagnosis, the need for outpatient follow up, to return to the emergency department if symptoms worsen or persist or if there are any questions or concerns that arise at home. Special discussion: I discussed with the patient/guardian in detail that at this point there is no indication for admission to the hospital. It is understood, however, that if the symptoms persist or worsen the patient needs to return immediately for re-evaluation. 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
[2022-03-20 11:46] VITALS: BP 162/105; TEMP 97.4; O2SAT 100
== END 2022-03-20 11:31 | disposition home or self-care (01) ==
LOC: ER 11:04
DX: B35.3 Tinea pedis (principal); I10 Essential (primary) hypertension
CPT/HCPCS: 99281

== ENCOUNTER 2022-11-24 08:45 | Emergency (ER) | payer BC ==
[2022-11-24] MEDS ORDERED: KETOROLAC 30 MG/ML INJ ONE (09:30)
[2022-11-24] MEDS ORDERED: dexAMETHasone 10 MG/ML VIAL ONE (09:30)
[2022-11-24] MEDS ORDERED: CYCLOBENZAPRINE 10 MG TAB ONE (09:30)
--- NOTE | 2022-11-24 09:59 | RAD REPORT ---
EXAM DESCRIPTION: CT - CTHCSPWOC - 11/24/2022 9:25 am CLINICAL HISTORY: PAIN COMPARISON: No comparisons TECHNIQUE: Axial thin cut noncontrast CT images of the head were obtained. Axial thin cut noncontrast CT images of the cervical spine were obtained. Multiplanar reformatted images were generated and reviewed. All CT scans are performed using dose optimization technique as appropriate and may include automated exposure control or mA/KV adjustment according to patient size. FINDINGS: CT HEAD WITHOUT CONTRAST: No acute hemorrhage, hydrocephalus or extra-axial collection is identified.Nonspecific mild periventr icular and deep white matter hypodensities, suggestive of chronic small vessel ischemic changes.No ar eas of brain edema or midline shift. Up to moderate mucosal thickening throughout the maxillary sinuses.The calvarium is intact. CT CERVICAL SPINE WITHOUT CONTRAST: No acute traumatic fracture or subluxation.Multilevel degenerative changes with disc height loss most pronounced at C5-6. Endplate remodeling, facet, and uncovertebral joint arthropathy contribute to gr molly 1 retrolisthesis of C5 over C6 measuring 4 millimeter. Multilevel neural foraminal narrowing, mos t pronounced at C4-5 and C5-6, worse on the left.No prevertebral soft tissues swelling is identified. IMPRESSION: No acute traumatic intracranial or cervical spine findings. Cervical spine degenerative changes as above.
--- NOTE | 2022-11-24 10:35 | ER ---
Nurse's Notes [facility] Name: Antoine Figueroa Age: 57 yrs Sex: Male : 1965 Arrival Date: 11/24/2022 Time: 08:45 Bed 10 Private MD: King Gonzalez T Diagnosis: Cervicalgia Presentation: 11/24 08:59 Chief complaint: Patient states: left sided neck pain x 2 weeks, not getting any ko1 better. No falls or injuries. Coronavirus screen: At this time, the client does not indicate any symptoms associated with coronavirus-19. Ebola Screen: No symptoms or risks identified at this time. Initial Sepsis Screen: Does the patient meet any 2 criteria? No. Patient's initial sepsis screen is negative. Does the patient have a suspected source of infection? No. Patient's initial sepsis screen is negative. Risk Assessment: Do you want to hurt yourself or someone else? Patient reports no desire to harm self or others. Onset of symptoms is unknown. 08:59 Method Of Arrival: Ambulatory ko1 08:59 Acuity: WILMER 4 ko1 Triage Assessment: 09:00 General: Appears in no apparent distress. Behavior is calm, cooperative, appropriate ko1 for age. Pain: Complains of pain in back of neck. Historical: - Allergies: 09:00 No Known Allergies; ko1 - Immunization history:: Adult Immunizations up to date. - Social history:: Smoking status: Patient denies any tobacco usage or history of. Screenin:07 [facility] ED Fall Risk Assessment (Adult) Score/Fall Risk Level 0 - 2 = Low Risk ll1 Oriented to surroundings, Maintained a safe environment, Educated pt \T\ family on fall prevention, incl call for assistance when getting out of bed, Hourly rounding (assess needs \T\ fall precautionary measures) done. Abuse screen: Denies threats or abuse. Nutritional screening: No deficits noted. Tuberculosis screening: No symptoms or risk factors identified. Assessment: 09:32 Reassessment: No changes from previously documented assessment. Patient and/or family ll1 updated on plan of care and expected duration. Pain level reassessed. Patient is alert, oriented x 3, equal unlabored respirations, skin warm/dry/pink. 10:48 Neuro: Level of Consciousness is awake, alert, obeys commands, Moves all extremities. ll1 Full function. Vital Signs: 08:59 BP 159 / 107; Pulse 96; Resp 18; Temp 98.8; Pulse Ox 99% ; Weight 99.79 kg; Height 5 ko1 ft. 10 in. ; 10:46 BP 161 / 100; Pulse 75; Resp 17; Pulse Ox 99% ; ll1 08:59 Body Mass Index 31.57 (99.79 kg, 177.8 cm) ko1 10:46 follow-up with PCP regarding BP ll1 ED Course: 08:46 Patient arrived in ED. rg4 08:47 King Gonzalez MD is Private Physician. rg4 08:47 Lena Renner PA-C is PHCP. sb4 08:47 Eros Terry MD is Attending Physician. sb4 09:00 Triage completed. ko1 09:00 Arm band placed on right wrist. Patient placed in an exam room, on a stretcher, on ko1 pulse oximetry. 09:07 Dom Higginbotham RN is Primary Nurse. ll1 09:24 Head C Spine MPR Wo Con CT In Process Unspecified. EDMS 10:35 King Gonzalez MD is Referral Physician. sb4 10:48 Patient has correct armband on for positive identification. Call light in reach. Side ll1 rails up X 1. Provided Education on: n/a. 10:48 No provider procedures requiring assistance completed. Patient did not have IV access ll1 during this emergency room visit. Administered Medications: 09:31 Drug: Ketorolac IM 30 mg Route: IM; Site: left vastus lateralis; ll1 10:49 Follow up: Response: No adverse reaction; Pain is unchanged, physician notified ll1 09:31 Drug: Dexamethasone IM 10 mg Route: IM; Site: right vastus lateralis; ll1 10:49 Follow up: Response: No adverse reaction ll1 09:31 Drug: Cyclobenzaprine PO 10 mg {Note: pain 5/10.} Route: PO; ll1 10:49 Follow up: Response: No adverse reaction; Pain is unchanged, physician notified; RASS: ll1 Alert and Calm (0) Medication: 10:48 VIS not applicable for this client. ll1 Outcome: 10:35 Discharge ordered by . sb4 10:48 Discharged to home ambulatory. ll1 10:48 Condition: stable 10:48 Discharge instructions given to patient, Instructed on discharge instructions, follow up and referral plans. no driving heavy equipment, medication usage, Demonstrated understanding of instructions, follow-up care, medications, Prescriptions given X 2. 10:49 Patient left the ED. 1 Signatures: Dispatcher [employer] EDNatasha Falcon rg4 Dom Higginbotham RN RN ll1 Alba Friedman RN RN ko1 Lena Renner, PAJoseC PAJoseC sb4 Corrections: (The following items were deleted from the chart) 09: 09:00 Home Meds: lisinopril Oral; ko1 ko1 09: 09:00 PMHx: Hypertension; ko1 ko1 09:31 09:31 Dexamethasone IM 10 mg IM in right gluteus 1 1 10:48 10:46 BP 161 / 100; Pulse 75bpm; Resp 17bpm; Pulse Ox 99%; [facility]
--- NOTE | 2022-11-24 10:35 | EDPHYS ---
Physician Documentation [facility] [place], [place] Name: Antonie Figueroa Age: 57 yrs Sex: Male : 1965 Arrival Date: 11/24/2022 Time: 08:45 Bed 10 Private MD: King Gonzalez T ED Physician Eros Terry HPI: 11/24 10:01 This 57 yrs old Male presents to ER via Ambulatory with complaints of Neck Pain. sb4 10:01 The patient or guardian complains of pain, that is acute. The symptoms are located on sb4 the left lateral aspect of neck. Onset: The symptoms/episode began/occurred 1 week(s) ago. Context: The neck injury/problem resulted from from unknown cause. Associated signs and symptoms: Pertinent negatives: bladder incontinence, bowel incontinence, nausea, numbness, tingling, vomiting, weakness, The patient denies any alcohol use. The patient is not apparently intoxicated. No neurological symptoms were experienced by the patient prior to arrival in the emergency department. The pain does not radiate. Modifying factors: The symptoms are alleviated by nothing. the symptoms are aggravated by nothing. The patient has not experienced similar symptoms in the past. The patient has not recently seen a physician. Historical: - Allergies: 09:00 No Known Allergies; ko1 - Immunization history:: Adult Immunizations up to date. - Social history:: Smoking status: Patient denies any tobacco usage or history of. ROS: 10:01 Constitutional: Negative for fever, chills, and weight loss. sb4 10:01 Neck: Positive for pain with movement, of the left lateral aspect of neck, Negative for injury or acute deformity, stiffness, tenderness, bony tenderness. 10:01 All other systems are negative. Exam: 11:21 Constitutional: This is a well developed, well nourished patient who is awake, alert, sb4 and in no acute distress. Head/Face: Normocephalic, atraumatic. Eyes: Extra-ocular motions intact. Periorbital areas with no swelling, redness, or edema. ENT: Mucous membranes moist. Neck: Trachea midline, no thyromegaly or masses palpated, and no cervical lymphadenopathy. Supple, full range of motion without nuchal rigidity, or vertebral point tenderness. No Meningismus. Cardiovascular: Regular rate and rhythm with a normal S1 and S2. Respiratory: Lungs have equal breath sounds bilaterally, clear to auscultation and percussion. No rales, rhonchi or wheezes noted. No increased work of breathing, no retractions or nasal flaring. Abdomen/GI: Soft, non-tender, no distension. Skin: Warm, dry with normal turgor. Normal color with no rashes, no lesions, and no evidence of cellulitis. MS/ Extremity: Pulses equal, no cyanosis. Neurovascular intact. Full, normal range of motion. Neuro: Awake and alert, GCS 15, oriented to person, place, time, and situation. Cranial nerves II-XII grossly intact. Motor strength 5/5 in all extremities. Sensory grossly intact. Cerebellar exam normal. Normal gait. Vital Signs: 08:59 BP 159 / 107; Pulse 96; Resp 18; Temp 98.8; Pulse Ox 99% ; Weight 99.79 kg; Height 5 ko1 ft. 10 in. ; 10:46 BP 161 / 100; Pulse 75; Resp 17; Pulse Ox 99% ; ll1 08:59 Body Mass Index 31.57 (99.79 kg, 177.8 cm) ko1 10:46 follow-up with PCP regarding BP ll1 MDM: 08:47 Patient medically screened. sb4 11:21 Differential diagnosis: arthritis, C-Spine Fracture Cervical Disc Herniation Cervical sb4 Discogenic Pain Cervical Facet Syndrome Cervical Raiculopathy Cervical Spondylosis cervical strain, Osteoarthritis. Data reviewed: vital signs, nurses notes, radiologic studies, and as a result, I will discharge patient. Counseling: I had a detailed discussion with the patient and/or guardian regarding the historical points, exam findings, and any diagnostic results supporting the discharge/admit diagnosis, radiology results, the need for outpatient follow up, a orthopedic surgeon. 11/24 09:13 Order name: Head C Spine MPR Wo Con CT; Complete Time: 10:00 sb4 Administered Medications: :31 Drug: Ketorolac IM 30 mg Route: IM; Site: left vastus lateralis; ll1 10:49 Follow up: Response: No adverse reaction; Pain is unchanged, physician notified ll1 09:31 Drug: Dexamethasone IM 10 mg Route: IM; Site: right vastus lateralis; ll1 10:49 Follow up: Response: No adverse reaction ll1 09:31 Drug: Cyclobenzaprine PO 10 mg {Note: pain 5/10.} Route: PO; ll1 10:49 Follow up: Response: No adverse reaction; Pain is unchanged, physician notified; RASS: ll1 Alert and Calm (0) Disposition Summary: 11/24/22 10:35 Discharge Ordered Location: Home sb4 Problem: an ongoing problem sb4 Symptoms: have improved sb4 Condition: Stable sb4 Diagnosis - Cervicalgia sb4 Followup: sb4 - With: King Gonzalez MD - When: As needed - Reason: Recheck today's complaints, Continuance of care, Re-evaluation by your physician Discharge Instructions: - Discharge Summary Sheet sb4 - Musculoskeletal Pain sb4 - Neck Exercises sb4 Forms: - Medication Reconciliation Form sb4 - Thank You Letter sb4 - Antibiotic Education sb4 - Prescription Opioid Use sb4 - Patient Portal Instructions sb4 - Leadership Thank You Letter sb4 Prescriptions: - Ibuprofen 600 mg Oral Tablet - take 1 tablet by ORAL route every 6 hours As needed take with food; 30 tablet; sb4 Refills: 0, Product Selection Permitted - Cyclobenzaprine 5 mg Oral Tablet - take 1 tablet by ORAL route 3 times per day As needed; 15 tablet; Refills: 0, sb4 Product Selection Permitted Signatures: Dispatcher [employer] Dom Dockery RN RN ll1 Alba Friedman RN RN ko1 Lena Renner PA-C PA-C sb4 Corrections: (The following items were deleted from the chart) 09: 09:00 Home Meds: lisinopril Oral; ko1 ko1 09: 09:00 PMHx: Hypertension; ko1 ko1
[2022-11-24 11:01] VITALS: TEMP 98.8; O2SAT 99
[2022-11-24 11:02] VITALS: BP 161/100
== END 2022-11-24 10:49 | disposition home or self-care (01) ==
LOC: ER 08:45
DX: M54.2 Cervicalgia (principal)
CPT/HCPCS: 70450; 72125; 96372; 99284; J1100

== ENCOUNTER → 2023-03-04 | Emergency (ER) | payer BC ==
[~2023-03-04] MED LIST: AMLODIPINE 10 MG TAB ONE; ASPIRIN 81 MG CHEWABLE TABLET ONE; NA CHLORIDE 0.9% 500 ML ONE; cloNIDine HCL 0.1 MG TAB ONE
[2023-03-04 10:05] LABS: Absolute Lymphocytes (CBC) 1.6 K/uL (0.7-4.9); Hematocrit 41.4 % (39.6-49.0); Lymphocytes % 25.3 % (15.3-44.8); MCV 91.5 fL (80-100); MPV 6.9 fL (7.6-11.3); Platelets 257 thou/uL (152-406); RBC Red Blood Cell Count 4.53 M/uL (4.33-5.43)
[2023-03-04 10:10] LABS: Protime INR 1.05
[2023-03-04 10:26] LABS: Albumin 3.9 g/dL (3.4-5.0); Bilirubin Direct 0.1 mg/dL (0-0.2); Bilirubin Indirect, Calculated 0.3 mg/dL (0.2-0.8); Bilirubin Total 0.4 mg/dL (0.2-1.0); Magnesium 1.7 mg/dL (1.6-2.4); Potassium 3.9 mEq/L (3.5-5.1); Protein, Total 7.8 g/dL (6.4-8.2); Troponin High Sensitivity 4.2 pg/mL (<58.9)
--- NOTE | 2023-03-04 11:04 | RAD REPORT ---
EXAM DESCRIPTION: CT - Head C Spine Mpr Wo Con - 03/04/2023 10:50 am CLINICAL HISTORY: Dizziness. Head and neck pain COMPARISON: 11/24/22 TECHNIQUE: Computed axial tomography of the head and cervical spine was obtained. Sagittal and coronal reconstruction was performed. All CT scans are performed using dose optimization technique as appropriate and may include automated exposure control or mA/KV adjustment according to patient size. FINDINGS: An intracranial bleed is not seen. The ventricles are normal in caliber. No significant hypodensity within the brain. An extra-axial fluid collection is not noted. Fluid within the visualized sinuses and mastoids is not seen . Mild chronic sinusitis A cervical fracture is not visualized. No dislocation is noted. Mild chronic posterior subluxation C4 on C5. 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 A cervical fracture is not visualized. 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
--- NOTE | 2023-03-04 11:06 | RAD REPORT ---
EXAM DESCRIPTION: [facility] Single View03/04/2023 10:47 am CLINICAL HISTORY: Chest pain COMPARISON: 2019 FINDINGS: The lungs appear clear of acute infiltrate. The heart is normal size IMPRESSION: No acute abnormalities displayed
[2023-03-04 14:43] LABS: Renal Epithelial <5 /HPF (None Seen); Specific Gravity 1.014 (1.005-1.030); Urine Bacteria None Seen /HPF (<20); Urine Bilirubin NEGATIVE (Negative); Urine Blood Negative (Negative); Urine Clarity Clear (Clear); Urine Color Light-Yellow (Yellow); Urine Glucose NEGATIVE (Negative); Urine Mucus Slight /HPF (None Seen); Urine Protein NEGATIVE (Negative); Urine RBC <5 /HPF (None Seen); Urine Urobilinogen Normal (Normal); Urine pH 5.5 (5.0-7.0)
[2023-03-04 14:50] LABS: Barbiturates NEGATIVE (NEGATIVE); Benzodiazepines NEGATIVE (NEGATIVE); Cocaine NEGATIVE (NEGATIVE); METHAMPHETAM NEGATIVE (NEGATIVE); Methadone NEGATIVE (NEGATIVE); Opiates NEGATIVE (NEGATIVE); Phencyclidine NEGATIVE (NEGATIVE); THC Cannibis NEGATIVE (NEGATIVE)
--- NOTE | 2023-03-04 15:04 | EDPHYS ---
Physician Documentation [facility] Name: Antoine Figueroa Age: 58 yrs Sex: Male : 1965 Arrival Date: 03/04/2023 Time: 09:29 Bed 20 Private MD: ED Physician Eros Terry HPI: 03/04 09:44 This 58 yrs old Male presents to ER via Unassigned with complaints of High Blood cp Pressure, Chest Tightness. 09:44 The patient has elevated blood pressure and discovered this at home, with a home cp device. Onset: The symptoms/episode began/occurred 1 hour(s) ago. Associated signs and symptoms: Pertinent positives: dizziness, lightheadedness, chest tightness, Pertinent negatives: dyspnea, vomiting. Severity of symptoms: At its worst the blood pressure was 180 mm Hg. 09:45 Patient reports PMHX significant for HTN and being prescribed blood pressure medication cp in the past. Patient reports he ran out of medication and did not follow up. Historical: - Allergies: 09:48 No Known Allergies; ap3 - PMHx: 09:48 Hypertensive disorder; Hypercholesterolemia; ap3 - Immunization history:: Client reports receiving the 2nd dose of the Covid vaccine. - Social history:: Smoking status: Reported history of juuling and/or vaping. Patient uses alcohol, on a daily basis. ROS: 09:50 Cardiovascular: Positive for chest tightness, Negative for edema, palpitations, cp 09:50 Eyes: Negative for injury, pain, redness, and discharge, cp 09:50 Constitutional: Negative for body aches, chills, fever, poor PO intake, 09:50 ENT: Negative for drainage from ear(s), ear pain, sore throat, difficulty swallowing, difficulty handling secretions, 09:50 Respiratory: Negative for cough, shortness of breath, wheezing, 09:50 Abdomen/GI: Negative for abdominal pain, vomiting, diarrhea, constipation, 09:50 : Negative for urinary symptoms, 09:50 Neuro: Positive for dizziness, lightheadedness, Negative for altered mental status, headache, numbness, speech changes, syncope, visual changes, 09:50 All other systems are negative, Exam: 09:48 ECG was reviewed by the Attending Physician. cp 09:55 Constitutional: The patient appears in no acute distress, alert, awake, cp non-diaphoretic, non-toxic, well developed, well nourished, 09:55 Head/Face: Normocephalic, atraumatic. cp 09:55 Eyes: Periorbital structures: appear normal, Pupils: equal, round, and reactive to light and accomodation, Extraocular movements: intact throughout, Conjunctiva: normal, no exudate, no injection, Sclera: no appreciated abnormality, Lids and lashes: appear normal, bilaterally, 09:55 ENT: External ear(s): are unremarkable, Nose: is normal, Mouth: Lips: moist, Oral mucosa: pink and intact, moist, Posterior pharynx: is normal, airway is patent, no erythema, no exudate, 09:55 Neck: ROM/movement: is normal, is supple, without pain, no range of motions limitations, 09:55 Chest/axilla: Inspection: normal, 09:55 Cardiovascular: Rate: tachycardic, Rhythm: regular, Edema: is not appreciated, JVD: is not appreciated, 09:55 Respiratory: the patient does not display signs of respiratory distress, Respirations: normal, no use of accessory muscles, no retractions, labored breathing, is not present, Breath sounds: are clear throughout, no decreased breath sounds, no stridor, no wheezing, 09:55 Abdomen/GI: Inspection: abdomen appears normal, Palpation: abdomen is soft and non-tender, in all quadrants, 09:55 Neuro: Orientation: to person, place \T\ time. Mentation: is normal, Cerebellar function: is grossly normal, Motor: moves all fours, strength is normal, Sensation: no obvious gross deficits, 14:27 ECG was reviewed by the Attending Physician. cp Vital Signs: 09:46 BP 188 / 115; Pulse 100; Resp 17; Temp 98.7; Pulse Ox 100% ; Weight 99.79 kg; Height 5 ap3 ft. 10 in. ; 09:56 BP 169 / 98; Pulse 101; Pulse Ox 99% on R/A; ap3 11:00 BP 177 / 101; Pulse 88; Resp 18; Pulse Ox 98% ; cp4 12:00 BP 160 / 91; Pulse 86; Resp 16; Pulse Ox 100% ; cp4 13:00 BP 165 / 96; Pulse 87; Resp 16; Pulse Ox 97% ; cp4 15:39 BP 157 / 94; Pulse 84; Resp 16; Pulse Ox 100% ; cp4 09:46 Body Mass Index 31.57 (99.79 kg, 177.8 cm) ap3 MDM: 09:38 Patient medically screened. [facility] 15:03 Data reviewed: vital signs, nurses notes, lab test result(s), EKG, radiologic studies, cp CT scan, plain films. 15:03 Differential diagnosis: hypertensive crisis, Malignant HTN, CVA, intracerebral cp hemorrhage. I considered the following discharge prescriptions or medication management in the emergency department Medications were administered in the Emergency Department. See MAR. Care significantly affected by the following chronic conditions: Hypertension. Counseling: I had a detailed discussion with the patient and/or guardian regarding the historical points, exam findings, and any diagnostic results supporting the discharge/admit diagnosis, lab results, radiology results, the need for outpatient follow up, for definitive care, a family practitioner, to return to the emergency department if symptoms worsen or persist or if there are any questions or concerns that arise at home. Response to treatment: the patient's symptoms have markedly improved after treatment, and as a result, I will discharge patient. 03/04 09:45 Order name: Basic Metabolic Panel; Complete Time: 10:28 03/04 10:28 Interpretation: Normal except: GLUC 123. 03/04 09:45 Order name: CBC with Diff; Complete Time: 10:28 03/04 10:28 Interpretation: Normal except: MPV 6.9; EOSINOPHIL % 5.1. 03/04 09:45 Order name: LFT's; Complete Time: 10:28 03/04 10:28 Interpretation: Normal except: ALK 37; GLOB 3.9; A/G 1.0. 03/04 09:45 Order name: Magnesium; Complete Time: 10:28 03/04 09:45 Order name: NT PRO-BNP; Complete Time: 10:28 03/04 09:45 Order name: PT-INR; Complete Time: 10:28 03/04 09:45 Order name: Troponin HS; Complete Time: 10:28 03/04 10:28 Interpretation: Reviewed. 03/04 09:52 Order name: Urinalysis W/Microscopic; Complete Time: 15:01 03/04 10:28 Order name: UDS; Complete Time: 15:01 03/04 13:59 Order name: Troponin HS; Complete Time: 15:01 cp 03/04 15:02 Interpretation: Reviewed. 03/04 09:45 Order name: XRAY Chest (1 view); Complete Time: 11:16 03/04 11:16 Interpretation: Report review. 03/04 10:29 Order name: CT Head C Spine; Complete Time: 11:16 cp 03/04 11:16 Interpretation: Reviewed report. 03/04 09:45 Order name: EKG; Complete Time: 09:46 cp 03/04 09:45 Order name: Cardiac monitoring; Complete Time: 09:50 cp 03/04 09:45 Order name: EKG - Nurse/Tech; Complete Time: 09:50 03/04 09:45 Order name: IV Saline Lock; Complete Time: 10:00 03/04 09:45 Order name: Labs collected and sent; Complete Time: 09:59 cp 03/04 09:45 Order name: O2 Per Protocol; Complete Time: 09:50 03/04 09:45 Order name: O2 Sat Monitoring; Complete Time: 09:50 03/04 13:59 Order name: EKG - Nurse/Tech; Complete Time: 14:27 cp EC:48 Rate is 97 beats/min. Rhythm is regular. MT interval is normal. QRS interval is normal. cp QT interval is normal. T waves are Inverted in lead aVR. Interpreted by me. Reviewed by me. 14:27 Rate is 81 beats/min. Rhythm is regular. MT interval is normal. QRS interval is normal. cp QT interval is normal. T waves are Inverted in leads aVR, V2. Interpreted by me. Reviewed by me. Administered Medications: 09:54 Drug: Aspirin PO Chewable Tablet 324 mg PO once; 81 mg tablets x 4 Route: PO; ap3 14:52 Follow up: Response: No adverse reaction cp4 10:42 Drug: NS 0.9% IV 1000 ml IV at 500 ml/hr Per protocol; 1000 mL bolus Route: IV; Rate: cp4 500 ml/hr; Site: right hand; 13:44 Follow up: Response: No adverse reaction; IV Status: Completed infusion cp4 10:58 Drug: cloNIDine PO 0.1 mg PO once Route: PO; cp4 13:44 Follow up: Response: No adverse reaction cp4 14:52 Follow up: Response: No adverse reaction cp4 14:27 Drug: amLODIPine PO 10 mg PO once Route: PO; cp4 14:52 Follow up: Response: No adverse reaction cp4 Disposition Summary: 03/04/23 15:03 Discharge Ordered Notes: Location: Home cp Problem: new cp Symptoms: have improved cp Condition: Stable cp Diagnosis - Hypertensive heart disease without heart failure cp - Dizziness and giddiness cp - Chest pain, unspecified cp Followup: cp - With: Clay Taylor MD - When: 2 - 3 days - Reason: Recheck today's complaints Discharge Instructions: - Discharge Summary Sheet cp - Nonspecific Chest Pain, Adult cp - Dizziness cp - Hypertension, Adult cp - Aspirin and Your Heart cp - Form - Blood Pressure Record Sheet cp - How to Take Your Blood Pressure cp Forms: - Medication Reconciliation Form cp - Thank You Letter cp - Antibiotic Education cp - Prescription Opioid Use cp - Patient Portal Instructions cp - Leadership Thank You Letter cp Prescriptions: - Norvasc 5 mg Oral tablet - take 1 tablet ORAL route once daily; 30 tablet; Refills: 0, Product Selection cp Permitted Signatures: Dispatcher [employer] EDEros Dallas MD MD cha Page, Corey, PILI PA cp Pretty Parker, RN RN ap3 Angella Marcus cp4 Corrections: (The following items were deleted from the chart) 03/05 09:22 12 09:44 Associated signs and symptoms: Pertinent positives: chest tightness, cp cp
--- NOTE | 2023-03-04 15:04 | ER ---
Nurse's Notes 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 ap3 patient reports pain to be tightness. patient also reports dizziness and light headedness that started at the same time. patient states he evaluated his blood pressure this morning and his systolic reading was in the 180's at home. Coronavirus screen: At this time, the client does not indicate any symptoms associated with coronavirus-19. Ebola Screen: No symptoms or risks identified at this time. Initial Sepsis Screen: Does the patient meet any 2 criteria? No. Patient's initial sepsis screen is negative. Does the patient have a suspected source of infection? No. Patient's initial sepsis screen is negative. Risk Assessment: Do you want to hurt yourself or someone else? Patient reports no desire to harm self or others. Onset of symptoms was March 04, 2023 at 08:45. 09:46 Method Of Arrival: Ambulatory ap3 09:46 Acuity: WILMER 2 ap3 Triage Assessment: 09:48 General: Appears in no apparent distress. Behavior is calm, cooperative, appropriate ap3 for age. Pain: Complains of pain in anterior aspect of left upper chest Quality of pain is described as Pain began 1 hour ago. Neuro: Level of Consciousness is awake, alert, obeys commands, Oriented to person, place, time, situation. Cardiovascular: Reports chest pain, Patient's skin is warm and dry. Respiratory: Airway is patent Respiratory effort is even, unlabored, Respiratory pattern is regular, symmetrical. Historical: - Allergies: 09:48 No Known Allergies; ap3 - PMHx: 09:48 Hypertensive disorder; Hypercholesterolemia; ap3 - Immunization history:: Client reports receiving the 2nd dose of the Covid vaccine. - Social history:: Smoking status: Reported history of juuling and/or vaping. Patient uses alcohol, on a daily basis. Screenin:49 [facility] ED Fall Risk Assessment (Adult) History of falling in the last 3 months, ap3 including since admission No falls in past 3 months (0 pts). Abuse screen: Denies threats or abuse. Nutritional screening: No deficits noted. Tuberculosis screening: No symptoms or risk factors identified. Assessment: 09:49 Pain: Pain does not radiate. ap3 Vital Signs: 09:46 BP 188 / 115; Pulse 100; Resp 17; Temp 98.7; Pulse Ox 100% ; Weight 99.79 kg; Height 5 ap3 ft. 10 in. ; 09:56 BP 169 / 98; Pulse 101; Pulse Ox 99% on R/A; ap3 11:00 BP 177 / 101; Pulse 88; Resp 18; Pulse Ox 98% ; cp4 12:00 BP 160 / 91; Pulse 86; Resp 16; Pulse Ox 100% ; cp4 13:00 BP 165 / 96; Pulse 87; Resp 16; Pulse Ox 97% ; cp4 15:39 BP 157 / 94; Pulse 84; Resp 16; Pulse Ox 100% ; cp4 09:46 Body Mass Index 31.57 (99.79 kg, 177.8 cm) ap3 ED Course: 09:32 Patient arrived in ED. im 09:34 Eros Guzman PA is PHCP. cp 09:34 Eros Terry MD is Attending Physician. cp 09:42 Jamari Hernandez, RN is Primary Nurse. rs5 09:48 Triage completed. ap3 09:49 Arm band placed on right wrist. 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 Pulse ox on. NIBP on. ap3 09:49 Patient has correct armband on for positive identification. Placed in gown. Bed in low ap3 position. Call light in reach. Adult w/ patient. 09:49 Patient maintains SpO2 saturation greater than 95% on room air. ap3 09:50 EKG done, by ED staff, reviewed by Eros ALEJANDRE. ap3 09:59 Initial lab(s) drawn, by nc, sent to lab. ap3 10:10 Primary Nurse role handed off by Jamari Hernandez, RN cp4 10:10 Angella Marcus is Primary Nurse. cp4 10:49 XRAY Chest (1 view) In Process Unspecified. EDMS 10:51 CT Head C Spine In Process Unspecified. EDMS 14:34 UDS Sent. cp4 14:34 Urinalysis W/Microscopic Sent. cp4 15:02 Clay Taylor MD is Referral Physician. cp 15:39 Provided Education on: chest pain and hypertension. cp4 15:39 No provider procedures requiring assistance completed. intact, bleeding controlled, No cp4 redness/swelling at site. Pressure dressing applied. Administered Medications: 09:54 Drug: Aspirin PO Chewable Tablet 324 mg PO once; 81 mg tablets x 4 Route: PO; ap3 14:52 Follow up: Response: No adverse reaction cp4 10:42 Drug: NS 0.9% IV 1000 ml IV at 500 ml/hr Per protocol; 1000 mL bolus Route: IV; Rate: cp4 500 ml/hr; Site: right hand; 13:44 Follow up: Response: No adverse reaction; IV Status: Completed infusion cp4 10:58 Drug: cloNIDine PO 0.1 mg PO once Route: PO; cp4 13:44 Follow up: Response: No adverse reaction cp4 14:52 Follow up: Response: No adverse reaction cp4 14:27 Drug: amLODIPine PO 10 mg PO once Route: PO; cp4 14:52 Follow up: Response: No adverse reaction cp4 Medication: 15:39 VIS not applicable for this client. cp4 Outcome: 15:03 Discharge ordered by MD. cp 15:39 Discharged to home ambulatory, cp4 15:39 Condition: stable 15:39 Discharge instructions given to patient, Instructed on discharge instructions, follow up and referral plans. medication usage, Demonstrated understanding of instructions, follow-up care, medications, Prescriptions given X 1, 15:41 Patient left the ED. cp4 Signatures: Dispatcher [employer] EDMS Eros Guzman PA PA cp Prokisch, Amanda RN RN ap3 Jamari Hernandez RN RN rs5 Danielle Parnell Christina cp4
[2023-03-04 16:12] VITALS: TEMP 98.7; O2SAT 100
[2023-03-04 16:18] VITALS: BP 157/94
== END ==
LOC: ER 09:29
DX: I11.9 Hypertensive heart disease without heart failure (principal); R42 Dizziness and giddiness; I10 Essential (primary) hypertension
CPT/HCPCS: 96361; 85025; 81001; 80048; 36415; 83735; 85610; 80076; 84484 ×2; 83880; 80307; 70450; 72125; 71045; 96360; 99285; J7040; 93005

== ENCOUNTER 2023-09-06 10:21 | Emergency (ER) | payer BC ==
[2023-09-06] MEDS ORDERED: dexAMETHasone 10 MG/ML VIAL ONE (11:06)
[2023-09-06] MEDS ORDERED: KETOROLAC 30 MG/ML INJ ONE (11:06)
--- NOTE | 2023-09-06 11:22 | ER ---
Nurse's Notes [facility] Name: Antoine Figueroa Age: 58 yrs Sex: Male : 1965 Arrival Date: 09/06/2023 Time: 10:21 Bed 9 Private MD: King Gonzalez T Diagnosis: Radiculopathy, lumbosacral region Presentation: 09/05 10:57 Chief complaint: Patient states: right sciatic nerve pain since the other day. iw Coronavirus screen: At this time, the client does not indicate any symptoms associated with coronavirus-19. Ebola Screen: Patient negative for fever greater than or equal to 101.5 degrees Fahrenheit, and additional compatible Ebola Virus Disease symptoms Patient denies exposure to infectious person. Patient denies travel to an Ebola-affected area in the 21 days before illness onset. No symptoms or risks identified at this time. 10:57 Method Of Arrival: Ambulatory iw 10:57 Initial Sepsis Screen: Does the patient meet any 2 criteria? No. Patient's initial iw sepsis screen is negative. Does the patient have a suspected source of infection? No. Patient's initial sepsis screen is negative. Risk Assessment: Do you want to hurt yourself or someone else? Patient reports no desire to harm self or others. Onset of symptoms was September 04, 2023. 10:57 Acuity: WILMER 4 iw Historical: - Allergies: 10:58 No Known Allergies; iw - PMHx: 10:58 Hypercholesterolemia; Hypertensive disorder; iw - Immunization history:: Adult Immunizations not up to date, . - Infectious Disease History:: Denies. - Social history:: Smoking status: Patient denies any tobacco usage or history of. - Family history:: not pertinent. - Hospitalizations: : No recent hospitalization is reported. Vital Signs: 10:57 BP 147 / 92; Pulse 75; Resp 16; Temp 98.7; Pulse Ox 95% ; Weight 102.06 kg; Height 5 iw ft. 10 in. ; Pain 7/10; 10:57 Body Mass Index 32.28 (102.06 kg, 177.8 cm) iw 10:57 Pain Scale: Adult iw ED Course: 10:22 Patient arrived in ED. am2 10:23 King Gonzalez MD is Private Physician. am2 10:34 Alex Villarreal MD is Attending Physician. rn 10:58 Triage completed. iw 10:58 Arm band placed on. iw 11:06 Shira Roberts, ARLENE is Primary Nurse. iw Administered Medications: 11:19 Drug: Ketorolac IM 30 mg IM once Route: IM; Site: right ventrogluteal; iw 11:19 Drug: Dexamethasone IM 10 mg IM once Route: IM; Site: right ventrogluteal; iw Outcome: 11:22 Discharge ordered by . rn 11:41 Patient left the ED. ph Signatures: Shira Roberts, ARLENE RN Alex Villarreal MD MD rn Hall, Patricia, RN RN Pretty Cleaning
--- NOTE | 2023-09-06 11:22 | EDPHYS ---
Physician Documentation [facility] Name: Antoine Figueroa Age: 58 yrs Sex: Male : 1965 Arrival Date: 09/06/2023 Time: 10:21 Bed 9 Private MD: King Gonzalez T ED Physician Alex Villarreal HPI: 09/05 11:19 This 58 yrs old Male presents to ER via Ambulatory with complaints of Low Back Pain. rn 11:19 The patient presents with pain that is chronic. The symptoms are located in the low rn back. The pain radiates to the right leg. Onset: The symptoms/episode began/occurred yesterday. Modifying factors: The patient symptoms are alleviated by remaining still, the patient symptoms are aggravated by movement. Severity of symptoms: At their worst the symptoms were moderate, in the emergency department the symptoms are unchanged. The patient has experienced similar episodes in the past. Patient reports right lower back pain/buttocks pain that radiates down right leg. Has had sciatica before and this feels identical. No new injury. Reports pain with movement with burning sensation and tingling in the leg. No weakness. No bowel or bladder issues. No abdominal pain.. Historical: - Allergies: 10:58 No Known Allergies; iw - PMHx: 10:58 Hypercholesterolemia; Hypertensive disorder; iw - Immunization history:: Adult Immunizations not up to date, . - Infectious Disease History:: Denies. - Social history:: Smoking status: Patient denies any tobacco usage or history of. - Family history:: not pertinent. - Hospitalizations: : No recent hospitalization is reported. ROS: 11:19 Constitutional: Negative for fever, chills, and weight loss, Cardiovascular: Negative rn for chest pain, palpitations, and edema, Respiratory: Negative for shortness of breath, cough, wheezing, and pleuritic chest pain, Abdomen/GI: Negative for abdominal pain, nausea, vomiting, diarrhea, and constipation, Back: Positive for right lower back pain : Negative for injury, bleeding, discharge, and swelling, MS/Extremity: Negative for injury and deformity, Neuro: Negative for headache, weakness, and seizure, Exam: 11:19 Constitutional: This is a well developed, well nourished patient who is awake, alert, rn and in no acute distress. Ambulatory to room without difficulty or assistance Cardiovascular: Regular rate and rhythm. No pulse deficits. Abdomen/GI: Soft, non-tender, no masses Back: No spinal tenderness. MS/ Extremity: Pulses equal, no cyanosis. Neurovascular intact. Full, normal range of motion. Equal circumference. Neuro: Awake and alert, GCS 15 Vital Signs: 10:57 BP 147 / 92; Pulse 75; Resp 16; Temp 98.7; Pulse Ox 95% ; Weight 102.06 kg; Height 5 iw ft. 10 in. ; Pain 7/10; 10:57 Body Mass Index 32.28 (102.06 kg, 177.8 cm) iw 10:57 Pain Scale: Adult iw MDM: 10:34 Patient medically screened. rn 11:19 Differential diagnosis: arthritis, strain, sciatica. Data reviewed: vital signs, nurses rn notes, and as a result, I will discharge patient. Counseling: I had a detailed discussion with the patient and/or guardian regarding the historical points, exam findings, and any diagnostic results supporting the discharge/admit diagnosis, the need for outpatient follow up, to return to the emergency department if symptoms worsen or persist or if there are any questions or concerns that arise at home. Special discussion: I discussed with the patient/guardian in detail that at this point there is no indication for admission to the hospital. It is understood, however, that if the symptoms persist or worsen the patient needs to return immediately for re-evaluation. Based on the history and exam findings, there is no indication for further emergent testing or inpatient evaluation. I discussed with the patient/guardian the need to see the back specialist for further evaluation of the symptoms. Administered Medications: 11:19 Drug: Ketorolac IM 30 mg IM once Route: IM; Site: right ventrogluteal; iw 11:19 Drug: Dexamethasone IM 10 mg IM once Route: IM; Site: right ventrogluteal; iw Disposition Summary: 09/06/23 11:22 Discharge Ordered Notes: Location: Home rn Problem: an acute exacerbation rn Symptoms: have improved rn Condition: Stable rn Diagnosis - Radiculopathy, lumbosacral region rn Followup: rn - With: Private Physician - When: As needed - Reason: Recheck today's complaints, Re-evaluation by your physician Discharge Instructions: - Discharge Summary Sheet rn - Lumbosacral Radiculopathy rn - Pinched Nerve rn - Back Exercises rn Forms: - Medication Reconciliation Form rn - Antibiotic rn women services - Prescription Opioid Use rn - Patient Portal Instructions rn - Leadership Thank You Letter rn Prescriptions: - Ultram 50 mg Oral tablet - take 1 tablet ORAL route every 6 hours As needed; 15 tablet; Refills: 0, rn Product Selection Permitted - Cyclobenzaprine 10 mg Oral tablet - take 1 tablet ORAL route every 8 hours As needed; 15 tablet; Refills: 0, rn Product Selection Permitted - Medrol (James) 4 mg Oral Tablets, Dose Pack - take 1 tablet ORAL route as directed - follow package instructions; 1 packet; rn Refills: 0, Product Selection Permitted Signatures: Shira Roberts RN RN iw Alex Villarreal MD MD rn
[2023-09-06 11:48] VITALS: BP 147/92; TEMP 98.7; O2SAT 95
== END 2023-09-06 11:41 | disposition home or self-care (01) ==
LOC: ER 10:21
DX: M54.17 Radiculopathy, lumbosacral region (principal)
CPT/HCPCS: 96372; 99283; J1100